=== PATIENT | male | born 1945 | race Caucasian/White ===

== ENCOUNTER 2016-09-14 15:40 | Emergency (ER) | payer BC ==
--- NOTE | 2016-09-14 18:35 | ED ---
Laceration/Wound HPI - HPI Summary HPI Summary: Patient was pruning a tree on his property when a thorn cut his left thumb. He applied direct pressure and bleeding was controlled. His tetanus is up to date. He is able to move all digits of the hand. No N/T. - History of Current Complaint Stated Complaint: ARM LACERATION Time Seen by Provider: 09/14/16 17:39 Hx Obtained From: Patient Mechanism of Injury: Sharp/Blunt Trauma Onset/Duration: Sudden Onset Aggravating: Movement Alleviating: Compression Timing: Constant Onset Severity: Severe Current Severity: Mild Pain Intensity: 1 Associated Signs & Symptoms: Pain Related Hx: Dominant Hand (Right) - Allergy/Home Medications Allergies/Adverse Reactions: Allergies Allergy/AdvReac Type Severity Reaction Status Date / Time No Known Allergies Allergy Verified 09/14/16 18:29 PMH/Surg Hx/FS Hx/Imm Hx Previously Healthy: Yes Infectious Disease History: No Infectious Disease History: Denies: Traveled Outside the [place] in Last 30 Days - Family History Known Family History: Positive: Hypertension - Social History Occupation: Retired Lives: With Family Alcohol Use: Occasionally Substance Use Type: Reports: None Smoking Status (MU): Former Smoker Review of Systems Positive: Other - 2 cm laceration to left thumb Negative: Weakness, Paresthesia, Numbness All Other Systems Reviewed And Are Negative: Yes Physical Exam Triage Information Reviewed: Yes Vital Signs On Initial Exam: Initial Vitals Temp Pulse Resp BP Pulse Ox 96.2 F 63 20 136/82 97 09/14/16 15:50 09/14/16 15:50 09/14/16 15:50 09/14/16 15:50 09/14/16 15:50 Vital Signs Reviewed: Yes Appearance: Positive: Well-Appearing, Well-Nourished, Pain Distress Skin: Positive: Warm, Skin Color Reflects Adequate Perfusion, Dry, Tender - 2 cm laceration to palmar aspect of at the base of the left thumb, Soft Head/Face: Positive: Normal Head/Face Inspection Eyes: Positive: EOMI, HARSHIL, Conjunctiva Clear ENT: Positive: Hearing grossly normal Respiratory/Lung Sounds: Positive: Breath Sounds Present Cardiovascular: Positive: RRR Musculoskeletal: Positive: Strength/ROM Intact. Negative: Edema Left Neurological: Positive: Sensory/Motor Intact, Alert, Oriented to Person Place, Time, NV Bundle Intact Distally, Normal Gait Psychiatric: Positive: Affect/Mood Appropriate AVPU Assessment: Alert Procedures - Laceration/Wound Repair 1 Location: upper extremity - left thumb Description: Linear Anesthesia: Local, 2.0%, Lido Length, Depth and Shape: 2 cm long, 3mm wide, 3 mm deep Betadine Prep?: No Irrigated w/ Saline (ccs): 200 Laceration/Wound Explored: clean Closure: Single Layer Suture Type: Nylon - 5.0 Number of Sutures: 10 Layer Closure?: No Sterile Dressing Applied?: Yes Diagnostics - Vital Signs Vital Signs Temp Pulse Resp BP Pulse Ox 09/14/16 15:51 96.4 F 59 20 136/82 98 09/14/16 15:50 96.2 F 63 20 136/82 97 - Laboratory Lab Statement: Any lab studies that have been ordered have been reviewed, and results considered in the medical decision making process. Laceration Repair Course/Dx - Differential Dx Differental Diagnoses: Abrasion, Avulsion, Dehiscence, Hematoma, Laceration, Puncture Wound - Clinical Impression Provider Diagnoses: Laceration of left thumb Discharge - Discharge Plan Condition: Stable Disposition: HOME Patient Education Materials: Finger Laceration (ED) Referrals: No Primary Care Phys,NOPCP [Primary Care Provider] - Additional Instructions: Keep your dressing clean, dry and in place for the next 24 hours. You may then remove and shower. Pat dry and cover with a clean, dry band-aid if you are going to be in a "dirty" environment, otherwise it can remain open to air. Do not soak the wound in any body of water until the sutures are removed. Elevate the hand above your heart and use Ibuprofen 400mg three times daily with meals for the next 5-7 days to reduce pain and swelling. Follow-up with your primary care provider or return to the emergency department in 10-12 days for suture removal. Return to the emergency department sooner if your symptoms worsen.
== END 2016-09-14 19:20 | disposition home or self-care (01) ==
LOC: ED 15:40
DX: S61.012A Laceration without foreign body of left thumb without damage to nail, initial encounter (principal); W45.8XXA Other foreign body or object entering through skin, initial encounter; Y93.H2 Activity, gardening and landscaping; Y92.007 Garden or yard of unspecified non-institutional (private) residence as the place of occurrence of the external cause
CPT/HCPCS: 12001; 99282